=== PATIENT | male | born 1980 | race Caucasian/White ===

== ENCOUNTER 2019-03-23 19:40 | Inpatient (IN) | payer OTHER ==
[~2019-03-23] VITALS: Ht 175.3 cm; Wt 94.8 kg
[2019-03-23 19:41] VITALS: BP 88/41
[2019-03-23 20:36] LABS: ABSOLUTE NEUTROPHILS 14.1 thou/uL (1.4-8.2); BASOPHILS 0.3 % (0.0-2.0); HEMATOCRIT 23.9 % (42.0-52.0); LYMPHOCYTES 3.5 % (24.0-44.0); MCH 25.7 pg (26.0-34.0); MCHC 33.6 g/dL (28.0-37.0); MCV 76.6 fL (80.0-100.0); MONOCYTES 8.3 % (1.0-8.0); PLATELET COUNT 329 thou/uL (150-400); POLYS 87.9 % (36.0-66.0); RBC 3.12 mil/uL (4.50-6.00); RDW 14.9 % (10.5-14.5)
[2019-03-23 20:51] LABS: ALBUMIN 2.5 g/dL (3.4-5.0); CALCIUM 6.9 mg/dL (8.5-10.1); CREATININE 2.2 mg/dL (0.7-1.3); POTASSIUM 3.2 mmol/L (3.5-5.1); TOTAL BILIRUBIN 0.9 mg/dL (<0.1-1.0); TOTAL PROTEIN 5.5 g/dL (6.4-8.2)
[2019-03-23 20:52] LABS: LIPASE 38 U/L (73-393); TROPONIN-I <0.06 ng/mL (<0.06)
[2019-03-23 20:56] LABS: URINE BILIRUBIN NEGATIVE (Negative); URINE BLOOD TRACE (Negative); URINE CLARITY CLEAR; URINE COLOR YELLOW; URINE GLUCOSE-RANDOM* 3+ (Negative); URINE KETONES 2+ (Negative); URINE LEUKOCYTES-REFLEX NEGATIVE (Negative); URINE NITRITE-REFLEX NEGATIVE (Negative); URINE PROTEIN (DIPSTICK) NEGATIVE (Negative); URINE UROBILINOGEN 0.2 E.U./dl (0.2-1.0)
[2019-03-23 21:07] LABS: BE(vivo) -11.4 mmol/L (-2 to +3); HCO3 11.4 mmol/L (22.0-26.0); PCO2 VENOUS 19.1 mmHg (41.0-51.0); PO2 VENOUS 213.8 mmHg (35.0-45.0)
[2019-03-23 22:12] LABS: BE(vivo) -9.4 mmol/L (-2 to +3); HCO3 13.7 mmol/L (22.0-26.0); PO2 210.3 mmHg (80.0-100.0); pH 7.408 (7.360-7.450); sO2 99.5 % (92.0-98.0)
[2019-03-23 22:14] LABS: PCO2 22.2 mmHg (35.0-45.0)
[2019-03-23 23:37] VITALS: BP 123/90
[2019-03-23 23:48] VITALS: BP 104/63
[2019-03-23 23:49] LABS: AMP/METHAMP Negative (Negative); BARBITURATES Negative (Negative); BENZODIAZEPINES Negative (Negative); COCAINE Negative (Negative); METHADONE Negative (Negative); OPIATES Negative (Negative); PCP Negative (Negative)
[2019-03-24] VITALS (28 sets, daily range): BP systolic 73–141; BP diastolic 27–81
[2019-03-24 00:10] LABS: % SATURATION 49 % (20-39); IRON 86 ug/dL (65-175); TIBC 174 ug/dL (250-450)
[2019-03-24 00:11] LABS: FOLIC ACID 16.3 ng/mL (8.6-58.9)
[2019-03-24 01:38] LABS: CALCIUM 7.8 mg/dL (8.5-10.1); CREATININE 2.1 mg/dL (0.7-1.3); MAGNESIUM 2.5 mg/dL (1.8-2.4)
[2019-03-24 06:21] LABS: HEMATOCRIT 24.8 % (42.0-52.0); HEMOGLOBIN 8.6 gm/dL (14.0-18.0); MCH 25.9 pg (26.0-34.0); MCHC 34.7 g/dL (28.0-37.0); MCV 74.7 fL (80.0-100.0); RBC 3.32 mil/uL (4.50-6.00); RDW 14.8 % (10.5-14.5); WBC 12.4 thou/uL (4.0-11.0)
[2019-03-24 06:28] LABS: CALCIUM 7.8 mg/dL (8.5-10.1); CREATININE 1.6 mg/dL (0.7-1.3); POTASSIUM 3.1 mmol/L (3.5-5.1)
--- NOTE | 2019-03-24 08:13 | EKG ---
[place] [address] [facility] [place] [address] ELECTROCARDIOGRAM REPORT Name: SILVA,BEGGS Room #: 237-P ADM IN M.R.#: [id number] Admission: 03/23/19 Attend Phys: Clyde Pineda MD Discharge: Date of : 84 Report #: [id number] THIS REPORT FOR: //name// [facility] ED Test Date: 2019-03-23 Test Time: 20:18:03 Pat Name: BEGGS SILVA Department: Room: 237 Gender: M Manager Mission: GILMER : 1980 Requested By: Winston Meléndez Order Number: [id number] MD: Jovani Alcantar Measurements Intervals [place] Rate: 111 P: 80 MO: 130 QRS: 69 QRSD: 90 T: 48 QT: 374 QTc: 508 Interpretive Statements Sinus tachycardia Nonspecific ST and T wave abnormality Prolonged QT interval No previous ECG available for comparison Electronically Signed On 03-24-2019 8:12:49 CDT by Jovani Alcantar [email or web address] <ELECTRONICALLY SIGNED> By: Jovani Alcantar MD, [facility] 03/24/19811 17 17 Jovani Alcantar MD, FACC /EPI
[2019-03-24 11:33] LABS: BE(vivo) -0.6 mmol/L (-2 to +3); HCO3 22.4 mmol/L (22.0-26.0); PCO2 30.6 mmHg (35.0-45.0); pH 7.482 (7.360-7.450); sO2 91.4 % (92.0-98.0)
[2019-03-24 11:39] LABS: PO2 55.5 mmHg (80.0-100.0)
--- NOTE | 2019-03-24 18:42 | HC ---
[facility] [place] [address] CONSULTATION Name: SOUTHOLD,GLENFIELD Room #: 237-P ADM IN ..#: [id number] Admission: 03/23/19 Attend Phys: Clyde Pineda MD Discharge: Date of : 84 Report #: [id number] THIS REPORT FOR: //name// CC: TAMIE physician/PCP Clyde Pineda DATE OF SERVICE: 03/24/2019 HISTORY OF PRESENT ILLNESS: This is a 38-year-old male patient who is unable to provide any reliable history. I talked to Dr. Varma, admitting physician. I have tried to call the significant other multiple times today, but I cannot reach her, so the history is entirely from the records. This patient slid. It is not clear if he had a seizure, but there was a possibility of seizure. He was incontinent of the urine. His blood sugar was very high at that time and the patient had multiple other abnormalities. Blood sugar did go as high as 742 at one time. He did undergo a CT scan of the head and C-spine, which I reviewed and that does not show any acute abnormality. The patient apparently did not have any seizure before, but I cannot get any history except from the record. REVIEW OF SYSTEMS: Indicates that the patient is tachycardic. He has diabetes and he has diabetic ketoacidosis. He has a history of leukocytosis. That is all the history I can get on this patient. He has an insulin pump, which has been removed. A 14-point review of system was attempted and this is all the history I can get. PAST MEDICAL HISTORY: Negative from seizure, the best I can tell, but the history is not verified. FAMILY HISTORY: Unavailable. SOCIAL HISTORY: Apparently, he smokes. PHYSICAL EXAMINATION: Pretty limited. He opens his eyes. He does not follow commands all the time. When he does, his speech is markedly dysarthric. When asked what hospital he is in, he thinks it is [facility] [place], but his speech is so dysarthric that it is almost impossible to understand it. He moves all 4 extremities. I tried to do the position since he did not cooperate. There is no meningeal sign in this patient. Cardiac and respiratory examinations appear unremarkable. Blood pressure is 113/64, respiration is 21, pulse is 123. LABORATORY DATA: He has multiple abnormalities including low sodium, potassium, high blood sugar, low calcium, etc. His CT scan of the head looks unremarkable. IMPRESSION: Question of seizure, which is not definite. Even if he had a seizure, he has so many metabolic problems, which can cause seizures. The worrisome feature in this patient is that his speech is very dysarthric. I have [facility] [address] [place] [address] CONSULTATION Name: [facility] Room #: 237-P [facility] IN M.R.#: [id number] Admission: 03/23/19 Attend Phys: Clyde Pineda MD Discharge: Date of : 84 Report #: [id number] made every attempt to contact the patient's significant other, but the phone keep coming busy and I cannot even leave a message for her. The only thing we can do is try to do an MRI to make sure there is no abnormality there, especially in the posterior fossa. We will try to do an EEG in this patient, but it is unlikely that he has epileptic seizure, and if MRI can be done, we can review that and see what it shows. Thank you very much for this referral and we will follow this patient along with you. this addendum is being added at the time of signing the note. I went to see the patient back to see evening. The patient is intubated. I talked to the nurses. They indicated that the patient had pretty uneventful day and was having all kind of respiratory problems and other issues. Because of that he has to be intubated and his MRI cannot be done. I did review the EEG and it does not show any active epileptiform activity. We will do further workup whenever the patient stabilizes.Dr. Bains will follow-up this patient with you from tomorrow <ELECTRONICALLY SIGNED> By: Sunday Lozano MD 03/24/19 1842 0955 1144 Sunday Lozano MD /nt
[2019-03-24 19:18] LABS: BE(vivo) 3.7 mmol/L (-2 to +3); HCO3 26.4 mmol/L (22.0-26.0); PCO2 32.5 mmHg (35.0-45.0); PO2 314.6 mmHg (80.0-100.0); pH 7.528 (7.360-7.450); sO2 99.8 % (92.0-98.0)
[2019-03-24 22:07] LABS: BE(vivo) 3.4 mmol/L (-2 to +3); HCO3 26.7 mmol/L (22.0-26.0); PCO2 34.8 mmHg (35.0-45.0); PO2 151.2 mmHg (80.0-100.0); pH 7.502 (7.360-7.450); sO2 99.1 % (92.0-98.0)
[2019-03-25] VITALS (34 sets, daily range): BP systolic 81–122; BP diastolic 34–82
[2019-03-25 05:12] LABS: BE(vivo) 1.4 mmol/L (-2 to +3); HCO3 25.3 mmol/L (22.0-26.0); PCO2 36.6 mmHg (35.0-45.0); PO2 176.9 mmHg (80.0-100.0); pH 7.457 (7.360-7.450); sO2 99.3 % (92.0-98.0)
[2019-03-25 05:47] LABS: HEMATOCRIT 22.1 % (42.0-52.0); HEMOGLOBIN 7.4 gm/dL (14.0-18.0); MCH 25.7 pg (26.0-34.0); MCHC 33.5 g/dL (28.0-37.0); MCV 76.7 fL (80.0-100.0); RBC 2.89 mil/uL (4.50-6.00); RDW 14.9 % (10.5-14.5); WBC 15.1 thou/uL (4.0-11.0)
[2019-03-25 06:02] LABS: ALBUMIN 2.3 g/dL (3.4-5.0); CALCIUM 8.1 mg/dL (8.5-10.1); MAGNESIUM 2.2 mg/dL (1.8-2.4); TOTAL BILIRUBIN 0.3 mg/dL (<0.1-1.0); TOTAL PROTEIN 6.1 g/dL (6.4-8.2)
[2019-03-25 12:59] LABS: HCO3 18.9 mmol/L (22.0-26.0); PCO2 30.1 mmHg (35.0-45.0); PO2 172.4 mmHg (80.0-100.0); pH 7.416 (7.360-7.450); sO2 99.2 % (92.0-98.0)
[2019-03-25 13:12] LABS: ABSOLUTE NEUTROPHILS 15.8 thou/uL (1.4-8.2); BASOPHILS 0.1 % (0.0-2.0); HEMOGLOBIN 7.4 gm/dL (14.0-18.0); LYMPHOCYTES 3.2 % (24.0-44.0); MCH 25.3 pg (26.0-34.0); MCHC 32.4 g/dL (28.0-37.0); MCV 78.2 fL (80.0-100.0); MONOCYTES 1.9 % (1.0-8.0); PLATELET COUNT 308 thou/uL (150-400); POLYS 94.8 % (36.0-66.0); RBC 2.94 mil/uL (4.50-6.00); RDW 15.2 % (10.5-14.5); WBC 16.6 thou/uL (4.0-11.0)
[2019-03-25 13:21] LABS: CALCIUM 8.9 mg/dL (8.5-10.1); POTASSIUM 4.3 mmol/L (3.5-5.1)
[2019-03-25 13:26] LABS: APTT 21.7 Seconds (24.5-32.8); FIBRINOGEN 480.4 mg/dL (210-360)
[2019-03-25 13:57] LABS: URINE BILIRUBIN NEGATIVE (Negative); URINE BLOOD TRACE (Negative); URINE CLARITY CLEAR; URINE COLOR YELLOW; URINE GLUCOSE-RANDOM* 3+ (Negative); URINE KETONES 1+ (Negative); URINE LEUKOCYTES-REFLEX NEGATIVE (Negative); URINE NITRITE-REFLEX NEGATIVE (Negative); URINE PROTEIN (DIPSTICK) NEGATIVE (Negative); URINE UROBILINOGEN 0.2 E.U./dl (0.2-1.0)
--- NOTE | 2019-03-25 14:32 | EKG ---
[place] [address] [facility] [place] [address] ELECTROCARDIOGRAM REPORT Name: BLOOMVILLE,WATERPORT Room #: 237-P ADM IN M.R.#: [id number] Admission: 03/23/19 Attend Phys: Mary Varma MD Discharge: Date of : 84 Report #: [id number] THIS REPORT FOR: //name// [facility] Test Date: 2019-03-25 Test Time: 13:06:25 Pat Name: JARAD SILVA Department: Room: 237 P Gender: M Quality Facilitator: Vickey HERNÁNDEZ : 1980 Requested By: John Vicente Order Number: [id number] MD: Jovani Alcantar Measurements Intervals [place] Rate: 103 P: 75 [place]: 118 QRS: 72 QRSD: 76 T: QT: 296 QTc: 388 Interpretive Statements Sinus tachycardia Nonspecific ST and T wave abnormality Compared to ECG 03/23/2019 20:18:03 Prolonged QT interval no longer present Electronically Signed On 03-25-2019 14:32:03 CDT by Jovani Alcantar [email or web address] <ELECTRONICALLY SIGNED> By: Jovani Alcantar MD, [facility] 03/25/19 1432 05 Jovani Alcantar MD, [facility] /EPI
--- NOTE | 2019-03-25 17:48 | HC ---
[facility] [place] [address] CONSULTATION Name: [facility] Room #: 237-[facility] IN .R.#: [id number] Admission: 03/23/19 Attend Phys: Mary Varma MD Discharge: Date of : 84 Report #: [id number] THIS REPORT FOR: //name// CC: FAM physician/PCP Clyde Pineda DATE OF SERVICE: 03/24/2019 REFERRING PHYSICIAN: Dr. Pineda or Dr. Varma REASON FOR REFERRAL: Acute respiratory distress. HISTORY OF PRESENT ILLNESS: The patient is a 38-year-old white male who presents to the ED with nausea and vomiting. He was found to be in DKA. Since admission, he became hypoxic and dyspneic. A pulmonary consultation was requested. The patient has a long history of diabetes. He has had a history of diabetic ketoacidosis. On admission, his glucose was around 700, bicarbonate was around 13. Urine ketones were 2+ positive. In the ER, the patient also fell from the bed. The patient was felt to have possible seizure-like activity. CT imaging was unremarkable. Since admission in the ICU, his mental status is never really clear. He has been somnolent, but arousable. There are some concerns for possible aspiration. His breath sounds are coarse. He is hypoxic requiring supplemental O2. Earlier today, he became more agitated, dyspneic, tachypneic, now currently on a nonrebreather. Portable chest x-ray shows no obvious infiltrates. There is some bile stains on his mouth suggested that he may have had an emesis. PAST MEDICAL HISTORY: As mentioned above, diabetes mellitus, diagnosed at 15 years of age, history of DKA, he has an insulin pump, but he ran out of insulin. PAST SURGICAL HISTORY: Unknown. ALLERGIES: None noted. HOME MEDICATIONS: Incomplete. He is currently on insulin drip with IV fluids and in the MAR. FAMILY HISTORY: Unknown. SOCIAL HISTORY: He does smoke cigarettes. Denies any alcohol use. [facility] [address] [place] [address] CONSULTATION Name: [facility] Room #: 237-P [facility] IN .R.#: [id number] Admission: 03/23/19 Attend Phys: Mary Varma MD Discharge: Date of : 84 Report #: [id number] REVIEW OF SYSTEMS: Otherwise review of system is deferred as the patient is not able to give adequate history at this time. PHYSICAL EXAMINATION: GENERAL: He is arousable, appears mildly tachypneic. He appears somnolent. VITAL SIGNS: Temperature is 98 degrees Fahrenheit, pulse 120, respiratory rate is 30, blood pressure is 140/63 mmHg, saturation is 100% to 84%. It is variable. HEENT: Normocephalic, atraumatic. NECK: Supple without any lymphadenopathy or thyromegaly. CHEST: Breath sounds are coarse bilaterally. Air movements are decreased due to poor effort. CARDIOVASCULAR: Normal S1, S2. No murmurs or gallop. There is no JVD, no carotid bruit. Pulses are 2+/4+ bilaterally. ABDOMEN: Soft, nontender, no organomegaly or masses felt. GENITOURINARY: Deferred. RECTAL: Deferred. EXTREMITIES: There is no edema, cyanosis or clubbing. LABORATORY DATA: Portable chest x-ray shows mild increase in interstitial markings, but no obvious consolidation. Arterial blood gas revealed pH 7.42, pCO2 of 30, pO2 of 55 on 6 liters of O2. Initial sodium was 119, CO2 is 13, BUN is 107, creatinine is 2.0. Most recent electrolytes: Sodium 132, potassium 3.1, chloride 95, CO2 is 29, creatinine is 1.6. WBC 12,400, hemoglobin 8.6. Current glucose is 168. IMPRESSION: 1. Acute hypoxic respiratory failure in this 38-year-old white male with diabetic ketoacidosis. Aspiration is suspected. 2. Diabetes mellitus type 1, diabetic ketoacidosis. His metabolic acidosis seems to have improved quite dramatically overnight from bicarbonate of 13-28. RECOMMENDATIONS: Would recommend broad-spectrum antibiotics, continue treatment for his DKA for now. We will follow electrolytes closely. DVT and GI prophylaxis recommended. Ultimately, if the patient worsens, the patient would likely require intubation. Thank you for this consultation. Critical care time 1 hour. <ELECTRONICALLY SIGNED> By: Mak Hung MD 03/25/19 1748 1508 0225 Mak Hung MD /nt
[2019-03-25 19:50] LABS: POTASSIUM 4.3 mmol/L (3.5-5.1)
[2019-03-26] VITALS (24 sets, daily range): BP systolic 81–127; BP diastolic 40–77
[2019-03-26 06:19] LABS: MCH 25.4 pg (26.0-34.0); MCHC 32.4 g/dL (28.0-37.0)
[2019-03-26 06:20] LABS: MCV 78.5 fL (80.0-100.0); PLATELET COUNT 281 thou/uL (150-400); RBC 2.51 mil/uL (4.50-6.00); RDW 15.9 % (10.5-14.5)
[2019-03-26 06:28] LABS: CALCIUM 8.4 mg/dL (8.5-10.1); CREATININE 0.9 mg/dL (0.7-1.3); POTASSIUM 4.2 mmol/L (3.5-5.1)
[2019-03-26 06:36] LABS: HEMATOCRIT 19.7 % (42.0-52.0); HEMOGLOBIN 6.4 gm/dL (14.0-18.0)
[2019-03-26 07:11] LABS: ABSOLUTE NEUTROPHILS 15.8 thou/uL (1.4-8.2); ANISOCYTOSIS 1+; HYPOCHROMASIA SLIGHT; METAMYELOCYTES 1 %; MICROCYTES 1+; NUCLEATED RBCS 1 /100WBC
[2019-03-26 13:24] LABS: CALCIUM 8.9 mg/dL (8.5-10.1); CREATININE 0.9 mg/dL (0.7-1.3)
--- NOTE | 2019-03-26 14:24 | HC ---
[facility] [place] [address] CONSULTATION Name: VESTAL,JARAD Room #: 237-P [facility] IN M.R.#: [id number] Admission: 03/23/19 Attend Phys: Mary Varma MD Discharge: Date of : 84 Report #: [id number] THIS REPORT FOR: //name// CC: TAMIE physician/PCP Mary Varma DATE OF SERVICE: 03/25/2019 INFECTIOUS DISEASES CONSULTATION REASON FOR CONSULTATION: I was asked to evaluate concerning respiratory failure, aspiration pneumonia, and sepsis. HISTORY OF PRESENT ILLNESS: The patient is a 38-year-old diabetic, presents with DKA, vomiting and aspiration. He has been feeling poorly for the last 3-4 days prior to his presentation. He had a seizure in the Emergency Room and apparently climbed out of bed or fell out of bed. No specific injury was noted. He is now intubated, FiO2 40%. Moderate tracheal secretions. At the time of intubation, he had moderate amount of tracheal secretions evident that were suctioned and sent for culture. He has had a low-grade fever. He has had leukocytosis. No abdominal pain or diarrhea. No dysuria. The patient is currently sedated on the ventilator. I did discuss the case with the patient's mother at the bedside. He has been known to do street drugs. His drug screen on admission was clean. PAST MEDICAL HISTORY: Diabetes, DKA, seizure disorder. FAMILY HISTORY: Noncontributory. SOCIAL HISTORY: He is a smoker of cigarettes. No significant alcohol intake reported. ALLERGIES: None known. MEDICATIONS: As noted on his MAR, now on Zosyn. PHYSICAL EXAMINATION: VITAL SIGNS: He was afebrile, sedated. SKIN: Without rash or decubitus. No palpable adenopathy. HEENT: Eyes, without scleral icterus. Mouth without mucositis. He was orally intubated. NECK: Supple. LUNGS: Coarse bilaterally, mostly in the bases. HEART: Regular without murmur, gallop or rub. ABDOMEN: Soft, no hepatosplenomegaly or mass appreciated. GENITOURINARY: External genitalia without lesion. [facility] [address] [place] [address] CONSULTATION Name: VESTAL,JARAD Room #: 237-P ADM IN M.R.#: [id number] Admission: 03/23/19 Attend Phys: Mary Varma MD Discharge: Date of : 84 Report #: [id number] RECTAL: Not performed. EXTREMITIES: Without clubbing, cyanosis or edema. He was able to move all extremities. Unable to assess further for the patient would not follow commands. MOOD: Sedated. LABORATORY STUDIES: Reviewed noting chest x-ray with basilar infiltrates. Urinalysis positive for glucose and ketones. Prolactin 2.2. Lactate 1.4, creatinine 1, BUN 25. Hemoglobin 7.4, WBC 16.6, platelets 308,000. Liver function tests normal. Blood and sputum cultures pending. IMPRESSION: 1. A 38-year-old diabetic with diabetic ketoacidosis, seizure, encephalopathy, now with basilar infiltrates and respiratory failure. 2. Aspiration pneumonia. This would be community acquired. RECOMMENDATIONS: We will continue IV antibiotic therapy with Zosyn, pending culture results. Await culture results. Discussed with nursing and family at the bedside. He will remain in the Intensive Care Unit full support. <ELECTRONICALLY SIGNED> By: Winston Weir MD 03/26/19 1424 1507 2358 Winston Weir MD /nt
[2019-03-26 22:13] LABS: HEMOGLOBIN 8.3 gm/dL (14.0-18.0)
[2019-03-27] VITALS (27 sets, daily range): BP systolic 90–115; BP diastolic 50–79
[2019-03-27 04:16] LABS: HEMATOCRIT 23.2 % (42.0-52.0); HEMOGLOBIN 7.9 gm/dL (14.0-18.0); MCH 26.9 pg (26.0-34.0); MCHC 34.1 g/dL (28.0-37.0); RBC 2.93 mil/uL (4.50-6.00); WBC 22.1 thou/uL (4.0-11.0)
[2019-03-27 04:17] LABS: PLATELET COUNT 384 thou/uL (150-400)
[2019-03-27 04:29] LABS: ALBUMIN 2.1 g/dL (3.4-5.0); CALCIUM 8.2 mg/dL (8.5-10.1); CREATININE 0.9 mg/dL (0.7-1.3); POTASSIUM 3.8 mmol/L (3.5-5.1); TOTAL BILIRUBIN 0.3 mg/dL (<0.1-1.0); TOTAL PROTEIN 5.3 g/dL (6.4-8.2)
[2019-03-27 05:20] LABS: PLATELET ESTIMATE NORMAL; POLYCHROMASIA 1+
[2019-03-27 14:34] LABS: CALCIUM 8.6 mg/dL (8.5-10.1); POTASSIUM 3.7 mmol/L (3.5-5.1)
[2019-03-28] VITALS (22 sets, daily range): BP systolic 87–124; BP diastolic 46–88
[2019-03-28 06:18] LABS: CALCIUM 8.1 mg/dL (8.5-10.1); CREATININE 0.8 mg/dL (0.7-1.3); POTASSIUM 3.7 mmol/L (3.5-5.1)
[2019-03-29] VITALS (54 sets, daily range): BP systolic 87–123; BP diastolic 47–85
[2019-03-29 05:00] LABS: BE(vivo) -4.5 mmol/L (-2 to +3); HCO3 19.2 mmol/L (22.0-26.0); pH 7.423 (7.360-7.450); sO2 98.2 % (92.0-98.0)
[2019-03-29 05:29] LABS: CREATININE 0.6 mg/dL (0.7-1.3); HEMATOCRIT 24.9 % (42.0-52.0); HEMOGLOBIN 8.2 gm/dL (14.0-18.0); MCH 26.3 pg (26.0-34.0); MCHC 32.7 g/dL (28.0-37.0); MCV 80.5 fL (80.0-100.0); RBC 3.1 mil/uL (4.50-6.00); RDW 16.4 % (10.5-14.5); WBC 14.5 thou/uL (4.0-11.0)
[2019-03-29 11:27] LABS: BE(vivo) -7.3 mmol/L (-2 to +3); HCO3 16.4 mmol/L (22.0-26.0); PCO2 27.1 mmHg (35.0-45.0); PO2 72.6 mmHg (80.0-100.0); sO2 94.9 % (92.0-98.0)
[2019-03-30] VITALS (103 sets, daily range): BP systolic 61–164; BP diastolic 31–94
[2019-03-30 05:29] LABS: BE(vivo) -7.5 mmol/L (-2 to +3); HCO3 15.6 mmol/L (22.0-26.0); PO2 138.6 mmHg (80.0-100.0); pH 7.427 (7.360-7.450); sO2 98.9 % (92.0-98.0)
[2019-03-30 05:33] LABS: CALCIUM 8.5 mg/dL (8.5-10.1); CREATININE 0.8 mg/dL (0.7-1.3); POTASSIUM 3.7 mmol/L (3.5-5.1)
[2019-03-30 05:33] LABS: PCO2 24.2 mmHg (35.0-45.0)
[2019-03-30 05:39] LABS: HEMATOCRIT 26.3 % (42.0-52.0); HEMOGLOBIN 8.6 gm/dL (14.0-18.0); MCH 27.2 pg (26.0-34.0); MCHC 32.9 g/dL (28.0-37.0); MCV 82.8 fL (80.0-100.0); PLATELET COUNT 456 thou/uL (150-400); RBC 3.17 mil/uL (4.50-6.00); RDW 16.8 % (10.5-14.5); WBC 18.8 thou/uL (4.0-11.0)
--- NOTE | 2019-03-30 08:41 | EEG ---
[facility] [place] [address] ELECTROENCEPHALOGRAM Name: [facility] Room #: 237- ADM IN M.R.#: [id number] Admission: 03/23/19 Attend Phys: Mary Varma MD Discharge: Date of : 84 Report #: [id number] THIS REPORT FOR: //name// CC: FAM physician/PCP Clyde Pineda DATE OF SERVICE: 03/24/2019 This patient has altered mental status. EEG was done to evaluate the possibility of seizure. EEG was done by placing the electrode by standard 10-20 system of electrode placement. Both referential and sequential montages were used for recording. Background activity in this patient's EEG is about 8 Hz and 30 microvolts. The patient did not cooperate and the EEG is masked by a lot of artifact. Photic stimulation is unremarkable. No active epileptiform activity was noticed. IMPRESSION: Moderate amount of slowing is noticed in this patient's EEG. That is a nonspecific abnormality, which can occur with dementia, encephalopathy, effect of psychotropic medication, etc. Clinical correlation is recommended. <ELECTRONICALLY SIGNED> By: Sunday Lozano MD 03/30/19 0841 1742 194 Sunday Lozano MD /nt
[2019-03-30 08:48] LABS: ABSOLUTE NEUTROPHILS 16.4 thou/uL (1.4-8.2); ANISOCYTOSIS 1+; METAMYELOCYTES 4 %; MYELOCYTES 1 %; PLATELET ESTIMATE NORMAL
[2019-03-30 09:55] LABS: BE(vivo) -4.9 mmol/L (-2 to +3); HCO3 18.1 mmol/L (22.0-26.0); PCO2 26.7 mmHg (35.0-45.0); PO2 128.6 mmHg (80.0-100.0); pH 7.449 (7.360-7.450); sO2 98.7 % (92.0-98.0)
[2019-03-30 13:52] LABS: URINE BLOOD NEGATIVE (Negative); URINE CLARITY CLEAR; URINE COLOR YELLOW; URINE GLUCOSE-RANDOM* 3+ (Negative); URINE KETONES 2+ (Negative); URINE LEUKOCYTES-REFLEX NEGATIVE (Negative); URINE NITRITE-REFLEX NEGATIVE (Negative); URINE PROTEIN (DIPSTICK) NEGATIVE (Negative); URINE SPECIFIC GRAVITY 1.025 (1.005-1.035); URINE UROBILINOGEN 0.2 E.U./dl (0.2-1.0)
[2019-03-30 13:55] LABS: ICTOTEST (BILI CONFIRMATORY) Negative (Negative); URINE BILIRUBIN NEGATIVE (Negative)
[2019-03-30 14:58] LABS: CREATININE 0.8 mg/dL (0.7-1.3); POTASSIUM 3.3 mmol/L (3.5-5.1)
[2019-03-30 15:04] LABS: ALBUMIN 1.9 g/dL (3.4-5.0); MAGNESIUM 1.5 mg/dL (1.8-2.4); PHOSPHORUS 2.5 mg/dL (2.5-4.9); TOTAL BILIRUBIN 0.4 mg/dL (<0.1-1.0); TOTAL PROTEIN 5.1 g/dL (6.4-8.2)
[2019-03-30 21:25] LABS: CALCIUM 7.7 mg/dL (8.5-10.1); CREATININE 0.8 mg/dL (0.7-1.3); POTASSIUM 3.4 mmol/L (3.5-5.1)
[2019-03-31] VITALS (66 sets, daily range): BP systolic 84–125; BP diastolic 47–79
[2019-03-31 03:56] LABS: BE(vivo) -1.8 mmol/L (-2 to +3); HCO3 21.6 mmol/L (22.0-26.0); PCO2 32.1 mmHg (35.0-45.0); PO2 131.4 mmHg (80.0-100.0); pH 7.445 (7.360-7.450); sO2 98.8 % (92.0-98.0)
[2019-03-31 05:51] LABS: MCH 26.8 pg (26.0-34.0); MCHC 33.5 g/dL (28.0-37.0); PLATELET COUNT 427 thou/uL (150-400); RDW 16.5 % (10.5-14.5)
[2019-03-31 06:01] LABS: CALCIUM 7.9 mg/dL (8.5-10.1); CREATININE 0.6 mg/dL (0.7-1.3); MAGNESIUM 1.7 mg/dL (1.8-2.4); POTASSIUM 3.9 mmol/L (3.5-5.1); TOTAL BILIRUBIN 0.2 mg/dL (<0.1-1.0); TOTAL PROTEIN 5.5 g/dL (6.4-8.2)
[2019-03-31 06:29] LABS: ABSOLUTE NEUTROPHILS 13.8 thou/uL (1.4-8.2); ANISOCYTOSIS 1+; PLATELET ESTIMATE INCREASED; POIKILOCYTOSIS 1+
[2019-03-31 16:28] LABS: BE(vivo) 0.6 mmol/L (-2 to +3); HCO3 24.1 mmol/L (22.0-26.0); PCO2 34.1 mmHg (35.0-45.0); PO2 130.1 mmHg (80.0-100.0); pH 7.467 (7.360-7.450); sO2 98.8 % (92.0-98.0)
[2019-04-01] VITALS (79 sets, daily range): BP systolic 49–138; BP diastolic 21–88
[2019-04-01 05:12] LABS: HEMATOCRIT 24.3 % (42.0-52.0); HEMOGLOBIN 7.9 gm/dL (14.0-18.0); MCH 26.8 pg (26.0-34.0); MCHC 32.6 g/dL (28.0-37.0); MCV 82.1 fL (80.0-100.0); RBC 2.96 mil/uL (4.50-6.00); RDW 16.9 % (10.5-14.5)
[2019-04-01 05:37] LABS: ALBUMIN 1.9 g/dL (3.4-5.0); CREATININE 0.5 mg/dL (0.7-1.3); POTASSIUM 3.9 mmol/L (3.5-5.1); TOTAL BILIRUBIN 0.4 mg/dL (<0.1-1.0); TOTAL PROTEIN 5.4 g/dL (6.4-8.2)
[2019-04-01 17:48] LABS: BE(vivo) -3.9 mmol/L (-2 to +3); HCO3 18.5 mmol/L (22.0-26.0); PO2 74.9 mmHg (80.0-100.0); pH 7.496 (7.360-7.450); sO2 96.3 % (92.0-98.0)
[2019-04-01 17:49] LABS: PCO2 24.5 mmHg (35.0-45.0)
[2019-04-01 18:08] LABS: HEMATOCRIT 22.3 % (42.0-52.0); HEMOGLOBIN 7.4 gm/dL (14.0-18.0); MCH 26.8 pg (26.0-34.0); MCHC 33.4 g/dL (28.0-37.0); MCV 80.3 fL (80.0-100.0); RBC 2.77 mil/uL (4.50-6.00); RDW 16.6 % (10.5-14.5); WBC 20.8 thou/uL (4.0-11.0)
[2019-04-01 18:32] LABS: CALCIUM 7.9 mg/dL (8.5-10.1); CREATININE 0.7 mg/dL (0.7-1.3); POTASSIUM 3.8 mmol/L (3.5-5.1)
[2019-04-01 18:37] LABS: AMP/METHAMP Negative (Negative); BARBITURATES Negative (Negative); BENZODIAZEPINES Negative (Negative); COCAINE Negative (Negative); METHADONE Negative (Negative); OPIATES Negative (Negative); PCP Negative (Negative)
[2019-04-01 18:39] LABS: ALBUMIN 1.8 g/dL (3.4-5.0); MAGNESIUM 1.4 mg/dL (1.8-2.4); TOTAL BILIRUBIN 0.3 mg/dL (<0.1-1.0); TOTAL PROTEIN 5.1 g/dL (6.4-8.2)
[2019-04-01 18:41] LABS: TROPONIN-I 1.06 ng/mL (<0.06)
[2019-04-01 19:37] LABS: URINE BILIRUBIN NEGATIVE (Negative); URINE BLOOD NEGATIVE (Negative); URINE CLARITY CLEAR; URINE COLOR YELLOW; URINE GLUCOSE-RANDOM* 3+ (Negative); URINE KETONES 1+ (Negative); URINE LEUKOCYTES-REFLEX NEGATIVE (Negative); URINE NITRITE-REFLEX NEGATIVE (Negative); URINE PROTEIN (DIPSTICK) TRACE (Negative); URINE UROBILINOGEN 0.2 E.U./dl (0.2-1.0)
[2019-04-01 22:59] LABS: HEMATOCRIT 22.8 % (42.0-52.0); HEMOGLOBIN 7.6 gm/dL (14.0-18.0); MCH 26.7 pg (26.0-34.0); MCHC 33.4 g/dL (28.0-37.0); MCV 79.9 fL (80.0-100.0); RBC 2.86 mil/uL (4.50-6.00); RDW 16.7 % (10.5-14.5); WBC 18.9 thou/uL (4.0-11.0)
[2019-04-01 23:18] LABS: INR 1.1; PROTIME 11.7 Seconds (9.3-11.4)
[2019-04-02] VITALS (29 sets, daily range): BP systolic 92–123; BP diastolic 32–77
[2019-04-02 07:12] LABS: CALCIUM 7.7 mg/dL (8.5-10.1); CREATININE 0.6 mg/dL (0.7-1.3); MAGNESIUM 1.3 mg/dL (1.8-2.4); POTASSIUM 3.1 mmol/L (3.5-5.1)
[2019-04-02 12:56] LABS: ALBUMIN 1.9 g/dL (3.4-5.0); CALCIUM 7.7 mg/dL (8.5-10.1); CREATININE 0.6 mg/dL (0.7-1.3); MAGNESIUM 1.7 mg/dL (1.8-2.4); POTASSIUM 3.3 mmol/L (3.5-5.1); TOTAL BILIRUBIN 0.3 mg/dL (<0.1-1.0); TOTAL PROTEIN 5.1 g/dL (6.4-8.2)
[2019-04-02 15:16] LABS: HEMATOCRIT 21.9 % (42.0-52.0); HEMOGLOBIN 7.2 gm/dL (14.0-18.0); MCH 26.7 pg (26.0-34.0); MCHC 33.1 g/dL (28.0-37.0); MCV 80.8 fL (80.0-100.0); RBC 2.71 mil/uL (4.50-6.00); RDW 16.8 % (10.5-14.5); WBC 12.1 thou/uL (4.0-11.0)
--- NOTE | 2019-04-02 15:52 | 2DMMODE ---
[facility] [address] [place] [address] 2 D/M-MODE ECHOCARDIOGRAM Name: HIAWATHA,BRONX Room #: 237-P ADM IN M.R.#: [id number] Admission: 03/23/19 Attend Phys: Mary Varma MD Discharge: Date of : 84 Date of Service: 04/02/19 1551 Report #: [id number] THIS REPORT FOR: //name// APPROVED REPORT Study performed: 04/02/2019 10:39:36 EXAM: Comprehensive 2D, Doppler, and color-flow Echocardiogram Patient Location: Bedside Room #: 237 Status: on-call BSA: 2.02 HR: 119 bpm BP: 110/63 mmHg Rhythm: Tachycardia Other Information Study Quality: Adequate Risk Factors: Cardiac Risk Factors: DM, Smoking Indications Hypotension Sepsis 2D Dimensions IVSd: 8.95 (7-11mm) LVOT Diam: 19.00 (18-24mm) LVDd: 36.30 mm PWd: 9.21 (7-11mm) Ascending Ao: 29.31 (22-36mm) LVDs: 24.65 (25-40mm) Aortic Root: 26.73 mm LV Single Plane 4CH: 64.39 % LV Single Plane 2CH: 66.69 % Biplane EF: 67.5 % Volumes Left Atrial Volume (Systole) Single Plane 4CH: 37.42 mL Single Plane 2CH: 18.24 mL LA ESV Index: 14.00 mL/m2 Aortic Valve AoV Peak Shadi.: 1.25 m/s AO Peak Gr.: 6.20 mmHg LVOT Max P.97 mmHg [facility] [address] [place] [address] 2 D/M-MODE ECHOCARDIOGRAM Name: [facility] Room #: 237-P ADM IN .R.#: [id number] Admission: 03/23/19 Attend Phys: Mary Varma MD Discharge: Date of : 84 Date of Service: 04/02/19 1551 Report #: [id number] LVOT Max V: 1.00 m/s SRINIVASAN Vmax: 2.22 cm2 Mitral Valve E/A Ratio: 1.2 MV Decel. Time: 107.99 ms MV E Max Shadi.: 0.96 m/s MV A Shadi.: 0.79 m/s MV PHT: 31.32 ms IVRT: 41.52 ms TDI E/Lateral E': 10.67 E/Medial E': 10.67 Medial E' Shadi.: 0.09 m/s Lateral E' Shadi.: 0.09 m/s Pulmonary Valve PV Peak Shadi.: 0.97 m/s PV Peak Gr.: 3.80 mmHg Tricuspid Valve TR Peak Shadi.: 2.81 m/s RAP Estimate: 10.00 mmHg TR Peak Gr.: 31.60 mmHg PA Pressure: 42.00 mmHg Left Ventricle The left ventricle is normal size. There is normal LV segmental wall motion. There is normal left ventricular wall thickness. Left ventricular systolic function is normal. The left ventricular ejection fraction is within the normal range. LVEF is 60-65%. Right Ventricle The right ventricle is normal size. The right ventricular systolic function is normal. Atria The left atrium size is normal. The right atrium size is normal. Aortic Valve The aortic valve is normal in structure. No aortic regurgitation is present. There is no aortic valvular stenosis. Mitral Valve The mitral valve is normal in structure. There is no mitral valve regurgitation noted. No evidence of mitral valve stenosis. [facility] [address] [place] [address] 2 D/M-MODE ECHOCARDIOGRAM Name: [facility] Room #: 237-P ADM IN .R.#: [id number] Admission: 03/23/19 Attend Phys: Mary Varma MD Discharge: Date of : 84 Date of Service: 04/02/19 1551 Report #: [id number] Tricuspid Valve The tricuspid valve is normal in structure. Mild tricuspid regurgitation. Pulmonary artery pressure is 31 mmHg + RA pressure. Pulmonic Valve The pulmonary valve is normal in structure. There is no pulmonic valvular regurgitation. Great Vessels The aortic root is normal in size. The ascending aorta is normal in size. IVC is dilated and collapses <50% with inspiration. Pericardium There is no pericardial effusion. <Conclusion> The left ventricle is normal size. There is normal left ventricular wall thickness. Left ventricular systolic function is normal. The right ventricle is normal size. The left atrium size is normal. The aortic valve is normal in structure. The mitral valve is normal in structure. Mild tricuspid regurgitation. <ELECTRONICALLY SIGNED> By: Dinesh Otero MD 04/02/19 1551 1551 1551 Dinesh Otero MD /INF
[2019-04-03] VITALS (46 sets, daily range): BP systolic 84–158; BP diastolic 39–131
[2019-04-03 05:12] LABS: HEMATOCRIT 22.5 % (42.0-52.0); HEMOGLOBIN 7.4 gm/dL (14.0-18.0); MCH 26.6 pg (26.0-34.0); MCHC 32.7 g/dL (28.0-37.0); MCV 81.4 fL (80.0-100.0); RBC 2.77 mil/uL (4.50-6.00); WBC 13.6 thou/uL (4.0-11.0)
[2019-04-03 05:14] LABS: CALCIUM 7.6 mg/dL (8.5-10.1); CREATININE 0.7 mg/dL (0.7-1.3); MAGNESIUM 1.5 mg/dL (1.8-2.4); POTASSIUM 3.9 mmol/L (3.5-5.1)
[2019-04-04] VITALS (61 sets, daily range): BP systolic 66–140; BP diastolic 36–81
[2019-04-04 04:54] LABS: HEMATOCRIT 21.6 % (42.0-52.0); HEMOGLOBIN 7.2 gm/dL (14.0-18.0); MCH 27.5 pg (26.0-34.0); MCHC 33.3 g/dL (28.0-37.0); MCV 82.4 fL (80.0-100.0); RBC 2.62 mil/uL (4.50-6.00); RDW 17.2 % (10.5-14.5); WBC 9.8 thou/uL (4.0-11.0)
[2019-04-04 05:13] LABS: CALCIUM 7.9 mg/dL (8.5-10.1); CREATININE 0.6 mg/dL (0.7-1.3); MAGNESIUM 1.7 mg/dL (1.8-2.4); POTASSIUM 3.4 mmol/L (3.5-5.1)
--- NOTE | 2019-04-04 09:18 | HC ---
[facility] [place] [address] CONSULTATION Name: MINEVILLE,JARAD Room #: [facility] IN M.R.#: [id number] Admission: 03/23/19 Attend Phys: Mary Varma MD Discharge: Date of : 84 Report #: [id number] THIS REPORT FOR: //name// CC: [facility] physician/PCP Mary Varma DATE OF SERVICE: 04/03/2019 CARDIOLOGY CONSULTATION INDICATION: Troponin elevation. HISTORY OF PRESENT ILLNESS: This is a 38-year-old male with a history of insulin-dependent diabetes mellitus who was initially admitted with nausea and vomiting. He was found to have a DKA and apparently had a seizure-like activity in the ER. There was a question of aspiration and Pulmonary was evaluated. He was intubated and was extubated on the . Cultures were positive for Pseudomonas. He has been managed for sepsis with an episode of hypotension on the . We are asked to evaluate the patient for troponin elevation, peak of 1.06. The patient is awake and able to respond to questions. His mother is at bedside giving additional information. The patient denies any prior cardiac history. He offers no symptoms of angina, dyspnea or palpitations. PAST MEDICAL HISTORY: Insulin-dependent diabetes. Prior history of DKA. ALLERGIES: None. MEDICATIONS: Please see MAR for full list. SOCIAL HISTORY: Positive tobacco use, smokes 1 pack per week. FAMILY HISTORY: Negative for premature CAD. REVIEW OF SYSTEMS: A full 10-point review of systems performed. Only the pertinent positives and negatives are described in the HPI. PHYSICAL EXAMINATION: VITAL SIGNS: Blood pressure is 110/80, heart rate is 120 beats per minute. GENERAL APPEARANCE: This is a thin male in no acute distress. HEENT: Normocephalic, atraumatic. Oral mucosa moist. NECK: Supple. LUNGS: Clear to auscultation. CARDIAC: Tachycardic. S1, S2 positive. ABDOMEN: Soft, nontender. EXTREMITIES: No cyanosis, no edema. [facility] [address] [address] CONSULTATION Name: MINEVILLE,STOCKTON Room #: [facility] IN .R.#: [id number] Admission: 03/23/19 Attend Phys: Mary Varma MD Discharge: Date of : 84 Report #: [id number] LABORATORY VALUES: White count 13.6, hemoglobin 7.4. Creatinine is 0.7. Peak troponin is 1.06. Echo reveals normal LV systolic function. ASSESSMENT AND PLAN: 1. Troponin elevation in the setting of hypotension from sepsis. The etiology is unclear, I do not believe this is a cardiac event. He remains clinically stable with no complaints of angina or dyspnea. The echo reveals normal LV systolic function. Consider an ischemic evaluation once he is medically stable and has no further evidence for hypotension. 2. Sepsis, continue with antibiotics. 3. Respiratory failure, status post extubation, appears comfortable. As per Pulmonary. 4. Diabetes mellitus, continue with insulin and check fingersticks. 5. Anemia, GI evaluation completed. Consider transfusion if not able to wean off pressors. <ELECTRONICALLY SIGNED> By: Dinesh Otero MD 04/04/1918 0904 0952 Dinesh Otero MD /nt
[2019-04-05 03:19] VITALS: BP 104/60
[2019-04-05 04:00] VITALS: BP 95/49
[2019-04-05 05:06] LABS: CALCIUM 8.1 mg/dL (8.5-10.1); CREATININE 0.7 mg/dL (0.7-1.3); MAGNESIUM 1.7 mg/dL (1.8-2.4); POTASSIUM 4.1 mmol/L (3.5-5.1)
[2019-04-05 05:08] LABS: MCH 27.7 pg (26.0-34.0); MCHC 33.6 g/dL (28.0-37.0); MCV 82.2 fL (80.0-100.0); RBC 2.3 mil/uL (4.50-6.00); RDW 18.1 % (10.5-14.5); WBC 7.6 thou/uL (4.0-11.0)
[2019-04-05 05:21] LABS: HEMATOCRIT 18.9 % (42.0-52.0); HEMOGLOBIN 6.3 gm/dL (14.0-18.0)
[2019-04-05 08:00] VITALS: BP 109/68
[2019-04-05 09:58] VITALS: BP 112/76; BP 94/52
[2019-04-05 10:06] VITALS: BP 111/52
--- NOTE | 2019-04-06 08:08 | CRIT ---
[facility] [place] [address] CRITICAL CARE NOTE Name: [facility] Room #: 237-P [facility] IN M.R.#: [id number] Admission: 03/23/19 Attend Phys: Mary Varma MD Discharge: 04/05/19 Date of : 84 Report #: [id number] THIS REPORT FOR: //name// CC: TAMIE physician/PCP Mary Varma HISTORY OF PRESENT ILLNESS: The patient is a 38-year-old male who was brought into the Emergency Room approximately 4 days ago with DKA and I have been asked to see him for further evaluation of melenic stools and anemia. He is intubated and sedated, gives no history. His history is obtained from his admitting reports. He apparently is a poorly controlled diabetic. Medical history is notable for diabetes. He was actively vomiting upon arrival to the Emergency Department. The patient had informed the ER staff that he was out of insulin for a couple of days. His medical history is otherwise notable for anemia, dehydration, prior history of diabetic ketoacidosis, hypokalemia and leukocytosis. Also, he has a history of seizure disorder. He is a smoker and no history of alcohol abuse per the chart. MEDICATIONS ON ADMISSION: Include those listed in his admitting notes. FAMILY HISTORY: Not known. REVIEW OF SYSTEMS: Not possible. PHYSICAL EXAMINATION: GENERAL: The patient is afebrile. VITAL SIGNS: Stable. HEENT: Nonicteric. NECK: No JVD, thyromegaly or bruits. CARDIOVASCULAR: Regular. ABDOMEN: Soft and nondistended. Normoactive bowel sounds. No hepatosplenomegaly. No stigmata of chronic liver disease. No abnormal masses or bruits. EXTREMITIES: Not examined. NEUROLOGIC: Not performed. RECTAL: Deferred. PERTINENT LABORATORY DATA: On presentation, hemoglobin 8.3 down to 7.9. He presented with hemoglobin of 6.4, MCV 79, RDW 16. INR 1.0. Toxicology was negative. INR 1.0. X-ray reveals no abnormality in the chest. ASSESSMENT: In summary, the patient has presented with diabetic ketoacidosis, has had nausea and vomiting, now has black melenic stools and a drop in hemoglobin 6.4, which has been replaced. We will proceed with upper endoscopy today to exclude significant peptic ulcer disease. I would empirically treat him with IV PPI therapy. [address] [address] CRITICAL CARE NOTE Name: [facility] Room #: 237-P [facility] IN M.R.#: [id number] Admission: 03/23/19 Attend Phys: Mary Varma MD Discharge: 04/05/19 Date of : 84 Report #: [id number] Thanks again for allowing me to participate in the care of this patient. <ELECTRONICALLY SIGNED> By: Wally Hampton MD 04/06/19 0808 [id number] Rehan Angulo MD /carlo
--- NOTE | 2019-04-06 08:08 | O ---
[facility] [place] [address] OPERATIVE REPORT Name: [facility] Room #: 237-[facility] IN M.R.#: [id number] Admission: 03/23/19 Attend Phys: Mary Varma MD Discharge: 04/05/19 Date of : 84 Report #: [id number] THIS REPORT FOR: //name// CC: TAMIE physician/PCP Mary Varma DATE OF SERVICE: 03/27/2019 SURGEON: Rehan Angulo MD PREOPERATIVE DIAGNOSIS: Heme-positive anemia and melena. POSTOPERATIVE DIAGNOSIS: See below. ANESTHESIA USED: See nursing notes in the ICU. INDICATION FOR PROCEDURE: As above. PROCEDURE PERFORMED: Esophagogastroduodenoscopy. FINDINGS: 1. Grade 4 erosive esophagitis. 2. Otherwise, normal upper endoscopy. DESCRIPTION OF PROCEDURE: The risks and benefits of the procedure were explained in detail prior to the procedure. Next, the tip of the Olympus video endoscope was advanced into the oropharynx, esophagus, stomach, into the third portion of the duodenum. A close inspection of the upper gastrointestinal mucosa was obtained upon slow withdrawal of the endoscope. The duodenum was normal in appearance, without evidence of erosion or ulceration. The pylorus was patent without evidence of obstruction. The gastric antrum and gastric body were normal in appearance. Retroflexion allowed close inspection of the cardia and the fundus, which revealed no significant abnormality. The GE junction was approximately 40 cm from the incisors. The mid and distal esophagus revealed grade 4 erosive esophagitis. There was no active bleeding noted. The patient tolerated the procedure well and was recovered in the ICU. IMPRESSION: Grade 4 erosive esophagitis. PLAN: 1. IV PPI therapy. 2. PPI daily, halfway. <ELECTRONICALLY SIGNED> By: Wally Hampton MD 04/06/19 0808 [id number] Rehan Angulo MD /nt
== END 2019-04-05 12:10 | disposition left against medical advice (07) | DRG 870 ==
LOC: ER 19:40 → ICU 21:31 → EROBS 21:31 → ICU 23:52
PROVIDERS: Emergency Medicine; Hospitalist; Internal Medicine; Internal Medicine Gastroenterology; Internal Medicine Pulmonary Disease; Nurse Practitioner Acute Care; Nurse Practitioner Family; Pediatrics; Physician Assistant; Specialist; ADMIT Internal Medicine
DX: A41.9 Sepsis, unspecified organism (principal); E10.10 Type 1 diabetes mellitus with ketoacidosis without coma; J96.01 Acute respiratory failure with hypoxia; J69.0 Pneumonitis due to inhalation of food and vomit; G92 Toxic encephalopathy; J13 Pneumonia due to Streptococcus pneumoniae; R65.21 Severe sepsis with septic shock; K22.10 Ulcer of esophagus without bleeding; K92.2 Gastrointestinal hemorrhage, unspecified; E87.0 Hyperosmolality and hypernatremia; D62 Acute posthemorrhagic anemia; I82.621 Acute embolism and thrombosis of deep veins of right upper extremity; E86.0 Dehydration; E87.6 Hypokalemia; G40.909 Epilepsy, unspecified, not intractable, without status epilepticus; F17.210 Nicotine dependence, cigarettes, uncomplicated; R47.81 Slurred speech; J44.9 Chronic obstructive pulmonary disease, unspecified; Z79.899 Other long term (current) drug therapy
CPT/HCPCS: 10078; 10203; 27000; 85076